=== PATIENT | female | born 1975 | race African-American/Black ===

== ENCOUNTER 2017-03-06 09:35 | Inpatient (IN) ==
[2017-03-06] MEDS ORDERED: ACETAMINOPHEN 325 MG TABLET PO PRN (11:47)
[2017-03-06 12:11] LABS: Basophils % 0.6 % (0.0-0.8); Eosinophils # 0.1 10*3/uL (0.0-0.87); Eosinophils % 1.5 % (0.00-10.9); Hematocrit 35.4 VOL% (35.7-47.0); Hemoglobin 12.2 GM/DL (12.0-16.0); Immature Granulocytes % 0.6 %; Immature Granulocytes Absolute 0.02 #; Lymphocytes # 1.6 10*3/uL (1.4-4.0); Mean Corpuscular HGB Conc 34.5 GM/DL (32-36); Mean Corpuscular Hemoglobin 31 PG (27-34); Mean Corpuscular Volume 88.9 FL (87-102); Mean Platelet Volume 10.6 FL (9.6-12.0); Monocytes # 0.3 10*3/uL (0.11-0.8); Neutrophils # 1.5 10*3/uL (1.4-7.4); Neutrophils % 43.3 % (38.7-73.9); Platelet Count 279 T/CUMM (130-400); Red Blood Count 3.98 MC/CUMM (3.8-5.5); Red Cell Distribution Width 12.5 % (9.3-17.3); White Blood Count 3.4 T/CUMM (4-12)
[2017-03-06] MEDS ORDERED: ONDANSETRON 4 MG/2 ML VIAL IV PRN (12:14)
[2017-03-06] MEDS ORDERED: MAGNESIUM HYDROXIDE SUSP 30 ML UDCUP PO PRN (12:14)
[2017-03-06 12:15] LABS: PT Patient Result 10.9 SECS
--- NOTE | 2017-03-06 12:20 | Gastrointestinal H&P ---
<Ruthie Jiménez - Last Filed: 03/06/17 12:14> Assessment and Plan (1) Rectal bleed Status: Acute Assessment and plan: 03/06-colonoscopy this morning at outpatient endoscopic clinic for rectal bleeding with rectosigmoid polyp removal and arterial bleeding post removal. Colonoscopy notes noted as below. H&H is stable. Admit to the hospital for observation overnight. Check serial H&H. Clear liquid diet. If remains stable overnight, we will tentatively plan discharge tomorrow. Plan an addendum to followed by Dr. Borja. Current Visit: Yes History of Present Illness Chief complaint: Rectal bleed History of present illness: Ms. Vela is a 41 year old female who is seen today at the outpatient endoscopic clinic for colonoscopy due to reports of rectal bleeding. Patient had onset of rectal bleeding with bowel movements over the last several weeks and presented to her PCP regarding this. At that time, patient was scheduled to see Dr. Borja in clinic in which at that time a colonoscopy was arranged. Prior to her colonoscopy, patient did have stools for occult blood collected which were negative. Patient presented today to the outpatient clinic to proceed with colonoscopy. Findings were noted of a 2 cm pedunculated highly vascular rectosigmoid junction polyp which was removed with snare polypectomy. Following removal, patient had onset of arterial bleeding which required clip placement 3 with results of good hemostasis. Due to concerns of developing rectal bleeding following discharge from the clinic, patient was referred for direct admission to the hospital for observation overnight. Her admission H&H is stable at 12/35. She is having no complaints of pain or further complaints of bleeding at this time. We will keep her inpatient overnight, check serial H& H's, and if no further bleeding develops and her labs remain stable, we will anticipate discharge home in the morning. Allergies Allergy/AdvReac Type Severity Reaction Status Date / Time No Known Allergies Allergy Verified 03/06/17 11:39 12 point system: reviewed and no additional remarkable complaints except as stated - Constitutional Constitutional: Present: as per HPI - EENT Eyes: Present: as per HPI Ears: Present: as per HPI Nose, mouth and throat: Present: as per HPI - Cardiovascular Cardiovascular: Present: as per HPI - Respiratory Respiratory: Present: as per HPI - Gastrointestinal Gastrointestinal: Present: as per HPI, hematochezia - Genitourinary Genitourinary: Present: as per HPI - Musculoskeletal Musculoskeletal: Present: as per HPI - Neurological Neurological: Present: as per HPI - Psychiatric Psychiatric: Present: as per HPI - Endocrine Endocrine: Present: as per HPI - Hematologic/Lymphatic Hematologic/Lymphatic: Present: as per HPI Exam - Constitutional Vitals: Period Temp Pulse Resp BP Sys/Menard Pulse Ox Last 24 Hr 97 F 77 16 136/89 100 General appearance: normal weight, no acute distress - Head Head exam: Present: normal inspection, normocephalic - Eye Eye exam: Present: other (Lids and conjunctive are unremarkable). Absent: scleral icterus - ENT ENT exam: Present: normal exam, normal oropharynx - Neck Neck exam: Present: normal inspection - Respiratory Respiratory exam: Present: clear to auscultation bilaterally. Absent: rales, rhonchi, wheezes - Cardiovascular Cardiovascular exam: Present: regular rate and rhythm. Absent: diastolic murmur , JVD, systolic murmur - GI/Abdominal GI/Abdominal exam: Present: normal bowel sounds, soft. Absent: ascites, distended, mass, organomegaly, tenderness - Extremities Exam Extremities exam: Present: normal inspection, full ROM - Back Exam Back exam: Present: normal inspection - Neurological Exam Neurological exam: Present: alert, oriented X3 - Psychiatric Psychiatric exam: Present: normal affect, normal mood - Skin Skin exam: Present: normal color, warm, dry Results - Labs CBC & BMP: 03/06/17 11:49 Lab Results: I have reviewed the past 24 hour labs <Chico Borja - Last Filed: 03/06/17 22:07> History of Present Illness Chief complaint: 3030 History of present illness: Ms. Vela is a 41 year old female Exam - Constitutional Vitals: Period Temp Pulse Resp BP Sys/Menard Pulse Ox Last 24 Hr 97 F-98.1 F 72-78 16-18 128-138/75-89 99-100 Results - Labs CBC & BMP: 03/06/17 17:23 03/06/17 11:49
[2017-03-06] MEDS: DEXTROSE 5% NACL 0.45% 1,000 ML IV SCH (12:26)
[2017-03-06 12:39] LABS: Albumin 3.5 G/DL (3.4-5.0); Bilirubin,Total 0.7 MG/DL (0.2-1.0); Osmolality,Calculated 277.3 MOS/KG (273-304); Potassium 3.5 MMOL/L (3.5-5.1); Total Protein 7.1 G/DL (6.4-8.3)
[2017-03-06] MEDS ORDERED: INFLUENZA VIRUS VACCINE 0.5 ML SYRINGE IM ONE (14:55)
[2017-03-06 17:42] LABS: Hematocrit 34.5 VOL% (35.7-47.0); Hemoglobin 11.7 GM/DL (12.0-16.0)
[2017-03-07 01:03] LABS: Hematocrit 34.2 VOL% (35.7-47.0); Hemoglobin 11.8 GM/DL (12.0-16.0)
--- NOTE | 2017-03-07 08:23 | Discharge Summary ---
Hospital Course - Hospital Course Hospital Course: Patient was admitted on yesterday following outpatient colonoscopy with rectosigmoid polyp removal which resulted in arterial bleeding. Patient underwent snare polypectomy of a 2 cm pedunculated highly vascular polyp at the rectosigmoid junction. The bleeding was resolved following clip placement 3 and had good hemostasis however she was admitted to the hospital overnight for observation. She has had one small bowel movement since her colonoscopy with a small amount of dark blood noted. She had a mild amount of abdominal cramping last night however this is possibly associated to the air placed in the colon during the procedure because she has had no further cramping. Her H&H has remained stable with minimal drop at 11.8/34.2. She is tolerated a clear liquid diet and states she is hungry this morning. We will advance her to regular diet and plan to discharge her home today. Diagnosis - Discharge Diagnosis (1) Rectal bleed Status: Acute Discharge Plan - Discharge Data Disposition: Disch To Home/Self Care Condition at Discharge: Stable Discharge Diet: advance to your usual diet Activity: resume usual activities as tolerated Hygiene: no restrictions Weight Bearing at Discharge: full weight bearing Driving: no restrictions Contact your physician if you experience:: Bleeding, pain uncontrolled by pain medications - Discharge Medications No Action Omeprazole 40 mg PO DAILY Fluticasone 50 Mcg Nasal [place] [Flonase Nasal [place]] 2 puffs BOTH NARES DAILY PRN PRN Reason: Allergy Symptoms Loratadine [Claritin] 10 mg PO DAILY PRN PRN Reason: Allergy Symptoms Lisinopril/Hydrochlorothiazide [Lisinopril-Hctz 10-12.5 mg Tab] 1 each PO DAILY - Follow Up or Referral - Forms/Instructions Exam - Constitutional Vitals: Period Temp Pulse Resp BP Sys/Menard Pulse Ox Last 24 Hr 97 F-98.1 F 72-78 16-20 106-138/61-89 96-100 General appearance: normal weight, no acute distress - Head Head exam: Present: normal inspection, normocephalic - Eye Eye exam: Present: other (Lids and conjunctivae are unremarkable). Absent: scleral icterus - ENT ENT exam: Present: normal exam, normal oropharynx - Neck Neck exam: Present: normal inspection - Respiratory Respiratory exam: Present: clear to auscultation bilaterally. Absent: rales, rhonchi, wheezes - Cardiovascular Cardiovascular exam: Present: regular rate and rhythm. Absent: diastolic murmur , JVD, systolic murmur - GI/Abdominal GI/Abdominal exam: Present: normal bowel sounds, soft. Absent: ascites, distended, mass, organomegaly, tenderness - Extremities Exam Extremities exam: Present: normal inspection, full ROM - Back Exam Back exam: Present: normal inspection - Neurological Exam Neurological exam: Present: alert, oriented X3 - Psychiatric Psychiatric exam: Present: normal affect, normal mood - Skin Skin exam: Present: normal color, warm, dry Discharge Results Procedures and tests throughout hospitalization: Pending Orders 03/07/17 06:43 HH [Hemoglobin and Hematocrit] Routine 03/07/17 12:00 HH [Hemoglobin and Hematocrit] Routine Labs on day of discharge: Labs from last 24 hours 03/07/17 03/06/17 03/06/17 00:16 17:23 11:49 WBC RBC Hgb 11.8 L 11.7 L Hct 34.2 L 34.5 L MCV MCH MCHC RDW Plt Count MPV Neut % (Auto) Lymph % (Auto) Kay % (Auto) Eos % (Auto) Baso % (Auto) Neut # (Auto) Lymph # (Auto) Kay # (Auto) Eos # (Auto) Baso # (Auto) Immature Gran % Nucleated RBC % Immature Gran # Nucleated RBCs # Immature Plt Fraction INR 1.0 PT Patient/Control Mix 10.9 Sodium Potassium Chloride Carbon Dioxide Anion Gap BUN Creatinine GFR Calculation BUN/Creatinine Ratio Glucose Calculated Osmolality Calcium Total Bilirubin AST ALT Alkaline Phosphatase Total Protein Albumin Globulin Albumin/Globulin Ratio 03/06/17 03/06/17 11:49 11:49 WBC 3.4 L RBC 3.98 Hgb 12.2 Hct 35.4 L MCV 88.9 MCH 31 MCHC 34.5 RDW 12.5 Plt Count 279 MPV 10.6 Neut % (Auto) 43.3 Lymph % (Auto) 46.0 Kay % (Auto) 8.0 Eos % (Auto) 1.5 Baso % (Auto) 0.6 Neut # (Auto) 1.5 Lymph # (Auto) 1.6 Kay # (Auto) 0.3 Eos # (Auto) 0.1 Baso # (Auto) 0.0 Immature Gran % 0.6 Nucleated RBC % 0.0 Immature Gran # 0.02 Nucleated RBCs # 0.00 Immature Plt Fraction 0.0 INR PT Patient/Control Mix Sodium 141 Potassium 3.5 Chloride 108 H Carbon Dioxide 26 Anion Gap 10.5 BUN 6 L Creatinine 0.70 GFR Calculation 137 BUN/Creatinine Ratio 8.00 Glucose 81 Calculated Osmolality 277.3 Calcium 8.0 L Total Bilirubin 0.70 AST 15 ALT 17 Alkaline Phosphatase 66 Total Protein 7.1 Albumin 3.5 Globulin 3.6 H Albumin/Globulin Ratio 0.9 L DS: Provider Date of admission: 03/06/17 11:40 Primary care physician: SONALI Joya Attending physician on admission: Ch[place] Borja MD Discharging clinician: Camacho Bronson Expected date of discharge: 03/07/17
[2017-03-07] MEDS: DEXTROSE 5% NACL 0.45% 1,000 ML IV SCH (08:30)
[2017-03-07 10:39] LABS: Hematocrit 35.5 VOL% (35.7-47.0); Hemoglobin 12.1 GM/DL (12.0-16.0)
[2017-03-07 11:59] VITALS: BP 110/82
[2017-03-07] MEDS ORDERED: FLUTICASONE 50 MCG NASAL SPRAY 16 GM BOTTLE BOTH NARES PRN (13:31)
[2017-03-07] MEDS ORDERED: LORATADINE 10 MG TABLET PO PRN (13:31)
[2017-03-08] MEDS ORDERED: LISINOPRIL/HCTZ 10-12.5 MG TABLET PO SCH (09:00)
[2017-03-08] MEDS ORDERED: PANTOPRAZOLE 40 MG TABLET PO SCH (09:00)
== END 2017-03-07 13:30 | disposition home or self-care (01) | DRG 379 ==
LOC: N.5E → OBSVTOIN 10:43
PROVIDERS: ADMIT Internal Medicine Gastroenterology; ATTEND Internal Medicine Gastroenterology

== ENCOUNTER 2017-04-18 06:35 | Inpatient (IN) ==
[2017-04-14 12:01] LABS: Basophils % 0.7 % (0.0-0.8); Eosinophils # 0.1 10*3/uL (0.0-0.87); Eosinophils % 1.9 % (0.00-10.9); Hematocrit 35.1 VOL% (35.7-47.0); Hemoglobin 12.1 GM/DL (12.0-16.0); Immature Granulocytes % 0.2 %; Immature Granulocytes Absolute 0.01 #; Lymphocytes # 1.9 10*3/uL (1.4-4.0); Lymphocytes % 45.5 % (21.3-54.2); Mean Corpuscular HGB Conc 34.5 GM/DL (32-36); Mean Corpuscular Hemoglobin 31 PG (27-34); Mean Corpuscular Volume 89.1 FL (87-102); Mean Platelet Volume 10.2 FL (9.6-12.0); Monocytes # 0.4 10*3/uL (0.11-0.8); Monocytes % 9.7 % (1.7-12.7); Neutrophils # 1.7 10*3/uL (1.4-7.4); Platelet Count 298 T/CUMM (130-400); Red Blood Count 3.94 MC/CUMM (3.8-5.5); Red Cell Distribution Width 12.6 % (9.3-17.3); White Blood Count 4.1 T/CUMM (4-12)
[2017-04-14 12:28] LABS: Calcium 8.8 MG/DL (8.5-10.1); Osmolality,Calculated 276.5 MOS/KG (273-304); Potassium 3.7 MMOL/L (3.5-5.1)
[~2017-04-18 06:35] MED LIST: ALVIMOPAN 12 MG CAPSULE ONE; ALVIMOPAN 12 MG CAPSULE PO ONE; ERTAPENEM 1,000 MG VIAL ONE; ERTAPENEM 1,000 MG in SODIUM CHLORIDE 0.9% 50 ML IV ONE
[2017-04-18] MEDS ORDERED: DIAZEPAM 5 MG TABLET PO ONE (06:56)
[2017-04-18] MEDS ORDERED: FAMOTIDINE 20 MG TABLET PO ONE (06:56)
[2017-04-18] MEDS ORDERED: FAMOTIDINE 20 MG TABLET ONE (07:27)
[2017-04-18] MEDS ORDERED: LACTATED RINGERS 1,000 ML IV SCH (07:30)
[2017-04-18] MEDS ORDERED: TISSUE ADHESIVE 1 EACH APPLICATOR TOP ONE (09:33)
[2017-04-18] MEDS ORDERED: MIDAZOLAM 2 MG/2 ML VIAL ONE (10:56)
[2017-04-18] MEDS ORDERED: PROPOFOL 200 MG/20 ML VIAL IV ONE (10:56)
[2017-04-18] MEDS ORDERED: SEVOFLURANE 1 UNIT/15 MINUTE INH ONE (10:56)
[2017-04-18] MEDS ORDERED: HYDROmorphone 2 MG/1 ML VIAL ONE (10:56)
[2017-04-18] MEDS ORDERED: ROCURONIUM 100 MG/10 ML VIAL IV ONE (10:57)
[2017-04-18] MEDS ORDERED: ONDANSETRON 4 MG/2 ML VIAL ONE (10:57)
[2017-04-18] MEDS ORDERED: fentaNYL 100 MCG/2 ML VIAL ONE (10:57)
[2017-04-18] MEDS ORDERED: LACTATED RINGERS 2,000 ML IV ONE (10:57)
[2017-04-18] MEDS ORDERED: ACETAMINOPHEN 1,000 MG/100 ML VIAL IV ONE (10:57)
[2017-04-18] MEDS ORDERED: PROMETHAZINE 25 MG/1 ML VIAL IM PRN (12:43)
[2017-04-18] MEDS ORDERED: FLUTICASONE 50 MCG NASAL SPRAY 16 GM BOTTLE BOTH NARES PRN (12:43)
[2017-04-18] MEDS ORDERED: ONDANSETRON 4 MG/2 ML VIAL IV PRN (12:43)
[2017-04-18] MEDS ORDERED: HYDROmorphone 2 MG/1 ML VIAL IV PRN (12:43)
[2017-04-18] MEDS: LACTATED RINGERS 1,000 ML IV SCH ×2 (14:37→21:22)
[2017-04-18] MEDS: KETOROLAC 15 MG/1 ML VIAL IV SCH ×2 (14:42→18:04)
[2017-04-18] MEDS: ALVIMOPAN 12 MG CAPSULE PO SCH (21:23)
[2017-04-19] MEDS: KETOROLAC 15 MG/1 ML VIAL IV SCH ×4 (01:20→18:11)
[2017-04-19 03:14] LABS: Basophils % 0.1 % (0.0-0.8); Hematocrit 31.7 VOL% (35.7-47.0); Hemoglobin 10.8 GM/DL (12.0-16.0); Immature Granulocytes % 0.3 %; Immature Granulocytes Absolute 0.02 #; Lymphocytes # 0.6 10*3/uL (1.4-4.0); Lymphocytes % 8.3 % (21.3-54.2); Mean Corpuscular HGB Conc 34.1 GM/DL (32-36); Mean Corpuscular Hemoglobin 30 PG (27-34); Mean Corpuscular Volume 88.8 FL (87-102); Mean Platelet Volume 10.7 FL (9.6-12.0); Monocytes # 0.5 10*3/uL (0.11-0.8); Neutrophils # 6.5 10*3/uL (1.4-7.4); Neutrophils % 84.3 % (38.7-73.9); Platelet Count 253 T/CUMM (130-400); Red Blood Count 3.57 MC/CUMM (3.8-5.5); Red Cell Distribution Width 12.4 % (9.3-17.3); White Blood Count 7.7 T/CUMM (4-12)
[2017-04-19 03:37] LABS: Calcium 7.8 MG/DL (8.5-10.1); Potassium 3.9 MMOL/L (3.5-5.1)
[2017-04-19] MEDS: LACTATED RINGERS 1,000 ML IV SCH (06:33)
[2017-04-19] MEDS: ENOXAPARIN 40 MG/0.4 ML SYRINGE SUBCUT SCH (06:34)
[2017-04-19] MEDS: ALVIMOPAN 12 MG CAPSULE PO SCH ×2 (09:59→20:36)
[2017-04-19] MEDS: PANTOPRAZOLE 40 MG TABLET PO SCH (09:59)
[2017-04-19] MEDS: MULTIVITAMIN (CENTRUM) TABLET PO SCH (09:59)
[2017-04-20] MEDS: KETOROLAC 15 MG/1 ML VIAL IV SCH ×3 (01:10→14:58)
[2017-04-20] MEDS: ENOXAPARIN 40 MG/0.4 ML SYRINGE SUBCUT SCH (06:28)
[2017-04-20] MEDS: MULTIVITAMIN (CENTRUM) TABLET PO SCH (09:38)
[2017-04-20] MEDS: PANTOPRAZOLE 40 MG TABLET PO SCH (09:38)
[2017-04-20] MEDS: ALVIMOPAN 12 MG CAPSULE PO SCH (09:38)
[2017-04-20 14:58] VITALS: BP 151/91
== END 2017-04-20 13:02 | disposition home or self-care (01) | DRG 334 ==
LOC: N.OR 06:35 → N.SDSINP 06:45 → N.3E 10:29
PROVIDERS: ADMIT Surgery; ATTEND Surgery